=== PATIENT | female | born 1995 | race Asian ===

== ENCOUNTER 2016-11-06 12:05 | Emergency (ER) | payer OTHER ==
[2016-11-06 12:49] VITALS: BP 96/59
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
== END 2016-11-06 14:41 | disposition home or self-care (01) ==
LOC: ED 12:05
DX: L50.9 Urticaria, unspecified (principal)
CPT/HCPCS: 99281